=== PATIENT | female | born 1965 | race Caucasian/White ===

== ENCOUNTER 2017-08-30 16:45 | Emergency (ER) | payer MEDICARE ==
[2017-08-30] MEDS ORDERED: MORPHINE SULFATE 10 MG/ML VIAL IVP ONE (16:51)
[2017-08-30] MEDS ORDERED: KETOROLAC 30 MG/ML VIAL IVP ONE (16:51)
[2017-08-30] MEDS ORDERED: 0.9 % SODIUM CHLORIDE 1,000 ML BAG IV ONE (16:51)
[2017-08-30] MEDS ORDERED: ONDANSETRON HCL IV 4 MG/2 ML VIAL IVP ONE (16:51)
--- NOTE | 2017-08-30 16:57 | Emergency Department Record ---
History of Present Illness - General Chief complaint: Flank Pain Stated complaint: RT FLANK PAIN Time Seen by Provider: 08/30/17 16:50 Source: Patient Mode of Arrival: Ambulatory Limitations: No limitations - History of Present Illness Initial comments: 52 yo female presents with right sided flank pain that is sharp and radiates around to the lower abdomen. She states the pain started about 2 hours ago. She has some nausea. No vomiting. No changes in the bowels or urination. She has had renal stones in the past. She states this feels similar. No history of abdominal surgery. No other recent illness. No rash. No cough, shortness of breath or chest pain. MD Complaint: Other (Right flank pain) -: Hour(s) (2) Radiation: R flank Severity: Severe Quality: Aching, Stabbing Consistency: Constant Improves with: None Worsens with: None Patient : No Associated Symptoms: Nausea/vomiting - Related Data Home Medications Medication Instructions Recorded Confirmed Last Taken Meloxicam [Mobic] 15 mg PO QHS 08/30/17 08/30/17 08/29/17 Tramadol HCl [Ultram] 50 mg PO Q8H 08/30/17 08/30/17 08/30/17 Previous Rx's Medication Instructions Recorded Hydrocodone/APAP 5/325Mg [Morrison 1 each PO Q6H #15 tab 08/30/17 5Mg/325Mg] Naproxen [Naprosyn] 500 mg PO Q12H #20 tab 08/30/17 Tamsulosin HCl [Flomax] 0.4 mg PO DAILY #10 cap.er.24h 08/30/17 Allergies Allergy/AdvReac Type Severity Reaction Status Date / Time No Known Drug Allergies Allergy Verified 08/30/17 16:59 Review of Systems Constitutional: Denies: Chills, Fever, Malaise, Weakness Eyes: Denies: Eye discharge ENT: Denies: Congestion, Throat pain Respiratory: Denies: Cough, Dyspnea, Hemoptysis, Stridor, Wheezes Cardiovascular: Denies: Chest pain, Palpitations, Syncope Endocrine: Denies: Fatigue, Polydipsia, Polyuria Gastrointestinal: Reports: As per HPI, Abdominal pain, Nausea. Denies: Constipation, Diarrhea, Hematemesis, Hematochezia, Melena, Vomiting Genitourinary: Denies: Dysuria, Frequency, Urgency Musculoskeletal: Reports: As per HPI, Back pain. Denies: Arthralgia Skin: Denies: Bruising, Change in color, Rash Neurological: Denies: Headache, Numbness, Weakness Psychiatric: Denies: Anxiety Hematological/Lymphatic: Denies: Blood Clots, Easy bleeding, Easy bruising Past Medical History - SOCIAL HISTORY Smoking Status: Former smoker - RESPIRATORY Hx Respiratory Disorders: No - CARDIOVASCULAR Hx Cardio Disorders: Yes Hx Hypertension: Yes - NEURO Hx Neuropathy: Yes (Extremities) - GI Hx GI Disorders: No - Hx Genitourinary Disorders: No - ENDOCRINE Hx Endocrine Disorders: Yes Hx Thyroid Disease: Yes (Hypo) - MUSCULOSKELETAL Hx Musculoskeletal Disorders: Yes Hx Arthritis: Yes (Anti-inflamitory) Hx Back Injury: Yes - PSYCH Hx Psych Problems: Yes Hx Anxiety: Yes Hx Depression: Yes - HEMATOLOGY/ONCOLOGY Hx Hematology/Oncology Disorders: No Family Medical History Hx Cancer: Brother/Sister Physical Exam - General General Appearance: Alert, Oriented x3, Cooperative, No acute distress Limitations: No limitations - Head Head exam: Normal inspection - Eye Eye exam: Normal appearance, PERRL. negative: Conjunctival injection, Scleral icterus - ENT ENT exam: Normal exam, Mucous membranes moist Ear exam: Normal external inspection Nasal Exam: Normal inspection Mouth exam: Normal external inspection - Neck Neck exam: Normal inspection, Full ROM. negative: Tenderness - Respiratory Respiratory exam: Normal lung sounds bilaterally. negative: Respiratory distress, Rhonchi, Stridor, Wheezes - Cardiovascular Cardiovascular Exam: Regular rate, Normal rhythm, Normal heart sounds - GI/Abdominal GI/Abdominal exam: Soft. negative: Distended, Guarding, Rebound, Rigid, Tenderness - Rectal Rectal exam: Deferred - exam: Deferred - Extremities Extremities exam: Normal inspection, Full ROM, Normal capillary refill. negative: Tenderness - Back Back exam: Reports: CVA tenderness (R), Full ROM. Denies: CVA tenderness (L), Vertebral tenderness - Neurological Neurological exam: Alert, Oriented X3 - Psychiatric Psychiatric exam: Normal affect, Normal mood - Skin Skin exam: Dry, Intact, Normal color, Warm Course - Reevaluation(s) Reevaluation #1: 08/30/17 17:19 The CBC was reviewed. No acute changes. 08/30/17 17:53 The CMP was reviewed. No acute changes The CT was reviewed. The patient has a 6.6 mm right distal UVJ stone with HN. She has well controlled pain. I will refer her to urology. We discussed recheck and close follow up She was given a strainer and instruction for home and reasons for a recheck. Medical Decision Making - Lab Data Result diagrams: 08/30/17 16:45 08/30/17 16:45 Disposition Disposition: Discharge Clinical Impression: Renal stones Disposition: Home, Self-Care Condition: (1) Good Instructions: Kidney Stones (ED) Additional Instructions: Return or be seen if the pain is not controlled Return or be seen sooner if fever Use the strainer when you urinate to see if you catch the stone. Prescriptions: Hydrocodone/APAP 5/325Mg [Morrison 5Mg/325Mg] 1 each PO Q6H #15 tab Naproxen [Naprosyn] 500 mg PO Q12H #20 tab. Tamsulosin HCl [Flomax] 0.4 mg PO DAILY #10 cap.er.24h Referrals: CHLOÉ WARREN M.D. [MEDICAL DOCTOR] - [facility] [Provider Group] Forms: Patient Portal Access Quality - Quality Measures Quality Measures: N/A - Blood Pressure Screening Does Patient Have Any of the Following: No Blood Pressure Classification: Hypertensive Reading Systolic Measurement: 151 Diastolic Measurement: 96 Screening for High Blood Pressure: < Pre-Hypertensive BP, F/U Documented > [ [id number]] Pre-Hypertensive Follow-up Interventions: Referral to alternative/primary care provider.
[2017-08-30] MEDS ORDERED: MORPHINE SULFATE 4MG/ML PREFILLED SYRINGE IVP ONE (17:01)
[2017-08-30 17:08] LABS: BASO % 0.5 % (0-6); GRAN % 40.5 % (47-80); HEMATOCRIT 41.1 % (35.0-47.0); HEMOGLOBIN 13.9 gm/dl (11.6-16.0); MEAN CELL VOLUME 87.3 fl (81-97); MEAN CORPUSCULAR HEMOGLOBIN 29.5 pg (27-33); MEAN CORPUSCULAR HGB CONC 33.8 g/dl (32-36); MEAN PLATELET VOLUME 10.3 fl (7.4-10.4); PLATELET COUNT 311 K/uL (130-400); RED BLOOD COUNT 4.71 M/uL (3.80-5.40); RED CELL DISTRIBUTION WIDTH 13.2 % (11.5-14.5); WHITE BLOOD COUNT W/O DIFF 10.9 K/uL (4.2-12.2)
[2017-08-30 17:09] LABS: URINE APPEARANCE CLEAR; URINE BILIRUBIN NEGATIVE (NEGATIVE); URINE BLOOD LARGE (NEGATIVE); URINE COLOR YELLOW; URINE GLUCOSE (UA) NEGATIVE (NEGATIVE); URINE KETONE TRACE (NEGATIVE); URINE LEUKOCYTE ESTERASE TRACE (NEGATIVE); URINE NITRITE NEGATIVE (NEGATIVE); URINE UROBILINOGEN 0.2 E.U./dL (0.20 - 1.00)
[2017-08-30 17:19] LABS: URINE BACTERIA FEW; URINE RBC 21 - 35 (NONE SEEN); URINE SQUAMOUS EPITHELIAL CELL 0 - 2 /hpf; URINE WBC 0 - 2 (0-2/hpf)
[2017-08-30 17:23] LABS: BLOOD UREA NITROGEN 27 mg/dL (6-20); CREATININE 0.7 mg/dL (0.5-0.9); EST GLOMERULAR FILTRATION RATE > 60 mL/min
[2017-08-30 17:24] LABS: TOTAL PROTEIN 7.2 g/dL (6.6-8.7)
[2017-08-30 17:26] LABS: GLUCOSE,RANDOM 88 mg/dL (74-109)
[2017-08-30 17:29] LABS: ALB/GLOB RATIO 1.8 (1.1-1.8); ALBUMIN 4.6 g/dL (4.0-5.0); ALKALINE PHOSPHATASE 92 U/L (35-104); ALT/SGPT 14 U/L (<33); AST/SGOT 21 U/L (10.0-35.0)
[2017-08-30] MEDS ORDERED: TAMSULOSIN HCL 0.4 MG CAP.ER.24H PO ONE (17:53)
--- NOTE | 2017-08-31 23:28 | CT SCAN REPORT ---
EXAM: CT SCAN ABDOMEN/PELVIS WO CONTRAST HISTORY: RIGHT FLANK PAIN. TECHNIQUE: CT abdomen and pelvis without contrast. Lack of IV contrast limits evaluation of solid visceral organs. Lack of oral contrast limits evaluation of bowel. COMPARISON: None. FINDINGS: Limited evaluation of the lung bases is unremarkable. Osseous structures are grossly intact. Limited evaluation of the liver, spleen, adrenal glands, pancreas, and left kidney are unremarkable. There is a punctate nonobstructing 2 mm left renal calculus. The gallbladder is present. Moderate atheromatous change. At least moderate right-sided hydronephrosis and hydroureter. There is an edematous appearance to the right kidney. Findings are secondary to a 6.6 mm right UVJ calculus. The urinary bladder is incompletely distended, limiting its evaluation. Tubal ligation clips are noted. No gross evidence for bowel obstruction. Normal appendix. No free air or free fluid. IMPRESSION: 1. AT LEAST MODERATE RIGHT-SIDED HYDRONEPHROSIS AND HYDROURETER WITH AN EDEMATOUS APPEARANCE TO THE RIGHT KIDNEY SECONDARY TO A 6.6 MM RIGHT UVJ CALCULUS. 2. PUNCTATE NONOBSTRUCTING 2 MM LEFT RENAL CALCULUS. JOB NUMBER: [id number] [facility]
== END 2017-08-30 18:21 | disposition home or self-care (01) ==
LOC: ER 16:45
DX: N13.2 Hydronephrosis with renal and ureteral calculous obstruction (principal); R11.2 Nausea with vomiting, unspecified; I10 Essential (primary) hypertension; Z87.891 Personal history of nicotine dependence
CPT/HCPCS: 99284 ×2; 96374; 96375; 96361; 85025; 80053; 81001; 74176; J1885; J2405; J2274; J7030

== ENCOUNTER 2019-02-23 10:51 | Observation (INO) | payer MEDICARE ==
[2019-02-23] MEDS ORDERED: ONDANSETRON HCL IV 4 MG/2 ML VIAL IVP ONE ×2 (11:14→14:39)
[2019-02-23] MEDS ORDERED: 0.9 % SODIUM CHLORIDE 1000ML 1,000 ML IV ONE (11:14)
[2019-02-23] MEDS ORDERED: CLINDAMYCIN 600MG/50ML PREMIX 600 MG/50 ML BAG IVPB ONE (11:14)
[2019-02-23] MEDS ORDERED: ACETAMINOPHEN 1,000 MG/100 ML BTL IVPB ONE (11:14)
--- NOTE | 2019-02-23 11:19 | Emergency Department Record ---
History of Present Illness - General Chief complaint: Neck Injury/Pain Stated complaint: VOMITING/ NECK PAIN Time Seen by Provider: 02/23/19 11:05 Source: Patient, Family Mode of Arrival: Ambulatory Limitations: No limitations - History of Present Illness Initial comments: 54 yo female presents with nausea and vomiting over the last day. She denies and fever. She has had a small area on the right leg of infection with some drainage. She saw the nurse of her PCP on Sunday and was started on Keflex. She has had three doses of Keflex. She has nausea started earlier in the day on Sunday and vomiting in the evening. No diarrhea. No streaking or spreading of the erythema of the right lower leg. She has some neck pain that she states is chronic from her RA but worse with vomiting. No known history of MRSA or prior skin infections. PCP is Sang. complaint: Nausea, Vomiting Onset/Timin -: Days(s) Description of Vomiting: Watery Description of Diarrhea: Water Location: Other Radiation: None Severity scale (1-10): 8 Consistency: Constant Improves with: None Worsens with: Other (Antibiotic) Associated Symptoms: Loss of appetite - Related Data Home Medications Medication Instructions Recorded Confirmed Last Taken Cephalexin [Keflex] 500 mg PO BID 02/23/19 02/23/19 02/22/19 Allergies Allergy/AdvReac Type Severity Reaction Status Date / Time No Known Drug Allergies Allergy Verified 08/30/17 16:59 Travel Screening - Travel/Exposure Within Last 30 Days Have you traveled within the last 30 days?: No - Travel/Exposure Within Last Year Have you traveled outside the [place] in the last year?: No - Additonal Travel Details Have you been exposed to anyone with a communicable illness?: No - Travel Symptoms Symptom Screening: None Review of Systems Constitutional: Reports: Chills, Malaise, Weakness Eyes: Denies: Eye discharge, Eye pain ENT: Denies: Congestion, Throat pain Respiratory: Denies: Cough, Dyspnea Cardiovascular: Denies: Chest pain, Palpitations, Syncope Endocrine: Reports: Fatigue Gastrointestinal: Reports: Nausea, Vomiting. Denies: Abdominal pain, Const ipation, Diarrhea, Hematemesis, Hematochezia, Melena Genitourinary: Denies: Dysuria, Urgency Musculoskeletal: Reports: Neck pain. Denies: Arthralgia, Back pain Skin: Reports: Change in color, Lesions. Denies: Bruising Neurological: Reports: Headache. Denies: Abnormal gait, Confusion, Paresthesias , Seizure, Tingling, Tremors, Vertigo Psychiatric: Denies: Anxiety Hematological/Lymphatic: Denies: Easy bleeding, Easy bruising Past Medical History - SOCIAL HISTORY Smoking Status: Former smoker Alcohol Use: None Drug Use: None - RESPIRATORY Hx Respiratory Disorders: No - CARDIOVASCULAR Hx Cardio Disorders: Yes Hx Hypertension: Yes - NEURO Hx Neuro Disorders: Yes Hx Neuropathy: Yes (Extremities) - GI Hx GI Disorders: No - Hx Genitourinary Disorders: No Hx Kidney Stones: Yes - ENDOCRINE Hx Endocrine Disorders: Yes Hx Thyroid Disease: Yes (Hypo) - MUSCULOSKELETAL Hx Musculoskeletal Disorders: Yes Hx Arthritis: Yes (Anti-inflamitory) Hx Back Injury: Yes - PSYCH Hx Psych Problems: Yes Hx Anxiety: Yes Hx Depression: Yes - HEMATOLOGY/ONCOLOGY Hx Hematology/Oncology Disorders: No Family Medical History Any Significant Family History?: No Hx Cancer: Brother/Sister Physical Exam - General General Appearance: Alert, Oriented x3, Cooperative, No acute distress Limitations: No limitations - Head Head exam: Atraumatic, Normocephalic, Normal inspection - Eye Eye exam: Normal appearance, PERRL, EOMI. negative: Conjunctival injection, Nystagmus, Scleral icterus - ENT ENT exam: Normal exam, Mucous membranes moist, Normal orophraynx Ear exam: Normal external inspection Nasal Exam: Normal inspection Mouth exam: Normal external inspection - Neck Neck exam: Normal inspection, Full ROM. negative: Lymphadenopathy, Meningismus, Tenderness, Thyromegaly - Respiratory Respiratory exam: Normal lung sounds bilaterally. negative: Accessory muscle use, Decreased breath sounds, Respiratory distress, Rhonchi, Stridor, Wheezes - Cardiovascular Cardiovascular Exam: Regular rate, Normal rhythm, Normal heart sounds - GI/Abdominal GI/Abdominal exam: Soft. negative: Distended, Guarding, Tenderness - Rectal Rectal exam: Deferred - exam: Deferred - Extremities Extremities exam: Tenderness. negative: Normal inspection, Calf tenderness, Pedal edema Image of Full Body: 1 - 5cm erythema, central 1cm scab with 2mm opening with slight pus drainage, minimal swelling - Back Back exam: Denies: CVA tenderness (R), CVA tenderness (L) - Neurological Neurological exam: Alert, Oriented X3 - Psychiatric Psychiatric exam: Normal affect, Normal mood. negative: Agitated, Anxious - Skin Skin exam: Dry, Intact, Normal color, Warm Course Vital Signs 02/23/19 10:53 Temperature 97.5 F L Pulse Rate 97 H Respiratory 16 Rate Blood Pressure 194/122 Pulse Ox 100 - Reevaluation(s) Reevaluation #1: 02/23/19 12:35 The labs were reviewed No significant abnormality on the CBC or CMP 02/23/19 12:37 The patient states her nausea and pain are improved. Toradol added. Antibiotic given for the right leg abscess with cellulitis 02/23/19 15:16 The patient continues to have nausea. She is unable to take her oral antibiotic. I recommend OBV for fluids, antiemetics, and antibiotics IV Medical Decision Making - Lab Data Result diagrams: 02/23/19 11:10 02/23/19 11:10 Disposition Disposition: Admit Clinical Impression: Vomiting, Abscess Cellulitis Qualifiers: Site of cellulitis: extremity Site of cellulitis of extremity: lower extremity Laterality: right Qualified Code(s): L03.115 - Cellulitis of right lower limb Disposition: Still a Patient at [facility] Decision to Admit: Admit from ER Decision to Admit Date: 02/23/19 Decision to Admit Time: 15:13 Condition: (2) Stable Forms: Patient Portal Access Time of Disposition: 15:13 Quality - Quality Measures Quality Measures: N/A - Blood Pressure Screening Does Patient Have Any of the Following: Active Dx of HTN Blood Pressure Classification: Hypertensive Reading Systolic Measurement: 194 Diastolic Measurement: 122 Screening for High Blood Pressure: Patient Exclusion, Hx of HTN [G9744]
[2019-02-23 11:44] LABS: ABSOLUTE NEUTROPHIL COUNT 9.33; HEMATOCRIT 47.2 % (35.0-47.0); HEMOGLOBIN 15.9 gm/dl (11.6-16.0); MEAN CELL VOLUME 83.7 fl (81-97); MEAN CORPUSCULAR HGB CONC 33.7 g/dl (32-36); MEAN PLATELET VOLUME 10.2 fl (7.4-10.4); PLATELET COUNT 327 K/uL (130-400); RED BLOOD COUNT 5.64 M/uL (3.80-5.40); RED CELL DISTRIBUTION WIDTH 14.3 % (11.5-14.5)
[2019-02-23 11:46] LABS: MEAN CORPUSCULAR HEMOGLOBIN 28.1 pg (27-33)
[2019-02-23 11:54] LABS: BLOOD UREA NITROGEN 23 mg/dL (6-20); CREATININE 0.5 mg/dL (0.5-0.9); EST GLOMERULAR FILTRATION RATE > 60 mL/min; TOTAL PROTEIN 7.6 g/dL (6.6-8.7)
[2019-02-23 11:56] LABS: GLUCOSE,RANDOM 125 mg/dL (74-109)
[2019-02-23 11:59] LABS: ALB/GLOB RATIO 1.6 (1.1-1.8); ALBUMIN 4.7 g/dL (4.0-5.0); ALKALINE PHOSPHATASE 113 U/L (35-104); ALT/SGPT 15 U/L (<33); AST/SGOT 20 U/L (10.0-35.0); PLATELET ESTIMATE NORMAL (NORMAL)
[2019-02-23] MEDS ORDERED: KETOROLAC 30 MG/ML VIAL IVP ONE (12:37)
[2019-02-23] MEDS ORDERED: ACETAMINOPHEN 1,000 MG/100 ML BTL IVPB SCH (15:47)
[2019-02-23] MEDS ORDERED: ONDANSETRON HCL IV 4 MG/2 ML VIAL IVP PRN (15:47)
[2019-02-23] MEDS ORDERED: KETOROLAC 30 MG/ML VIAL IVP PRN (15:47)
[2019-02-23] MEDS ORDERED: FLU VAC QS 2019-20 (INPT, 6MO+) 60MCG/0.5ML IM ONE (16:16)
[2019-02-23] MEDS: 0.9 % SODIUM CHLORIDE 1000ML 1,000 ML IV ONE ×2 (16:30→23:21)
[2019-02-23] MEDS: ACETAMINOPHEN 1,000 MG/100 ML BTL IVPB SCH ×2 (17:13→23:10)
[2019-02-23] MEDS ORDERED: CLINDAMYCIN 600MG/50ML PREMIX 600 MG/50 ML BAG IVPB SCH (19:00)
[2019-02-23] MEDS: CLINDAMYCIN 600MG/50ML PREMIX 600 MG/50 ML BAG IVPB SCH (21:02)
[2019-02-24] MEDS: CLINDAMYCIN 600MG/50ML PREMIX 600 MG/50 ML BAG IVPB SCH ×3 (05:12→20:32)
[2019-02-24] MEDS: ACETAMINOPHEN 1,000 MG/100 ML BTL IVPB SCH ×4 (06:00→22:47)
[2019-02-24] MEDS: LEVOTHYROXINE SODIUM 25 MCG TABLET PO SCH (06:24)
--- NOTE | 2019-02-24 07:45 | History & Physical ---
History of Present Illness - Date of Service Date of Service for History & Physical: 02/24/19 - History of Present Illness Admitting Diagnosis: right leg cellulitis, abscess, intractible nausea and vomiting History of Present Illness: 54 yo female presents with nausea and vomiting over the last day. She denies and fever. She has had a small area on the right leg of infection with some drainage. She saw the nurse of her PCP on Sunday and was started on Keflex. She has had three doses of Keflex. She has nausea started earlier in the day on Sunday and vomiting in the evening. No diarrhea. No streaking or spreading of the erythema of the right lower leg. She has some neck pain that she states is chronic from her RA but worse with vomiting. No known history of MRSA or prior skin infections. PCP is Sang. PAST MEDICAL/SURGICAL HISTORY Past Surgical History Right knee scope Rizotomy Tuballigation PMH - Respiratory Hx Respiratory Disorders No PMH - Cardiovascular Hx Cardiovascular Disorders Yes Hx Hypertension Yes PMH - Neuro Hx Neurological Disorders Yes Hx Neuropathy Yes: Extremities PMH - GI Hx Gastrointestinal Disorders No PMH - Hx Genitourinary Disorders No Hx Kidney Stones Yes PMH - Endocrine Hx Endocrine Disorders Yes Hx Diabetes No Hx Thyroid Disease Yes: Hypo PMH - Musculoskeletal Hx Musculoskeletal Disorders Yes Hx Arthritis Yes: Anti-inflamitory Hx Back Injury Yes PMH - Psych Hx Psychiatric Problems Yes Hx Anxiety Yes Hx Depression Yes PMH - Hematology/Oncology Hx Hematology/Oncology No Disorders Laboratory Results WBC 11.0 K/uL (4.2-12.2) 02/23/19 11:10 RBC 5.64 M/uL (3.80-5.40) H 02/23/19 11:10 Hgb 15.9 gm/dl (11.6-16.0) 02/23/19 11:10 Hct 47.2 % (35.0-47.0) H 02/23/19 11:10 MCV 83.7 fl (81-97) 02/23/19 11:10 MCH 28.1 pg (27-33) 02/23/19 11:10 MCHC 33.7 g/dl (32-36) 02/23/19 11:10 RDW 14.3 % (11.5-14.5) 02/23/19 11:10 Plt Count 327 K/uL (130-400) 02/23/19 11:10 MPV 10.2 fl (7.4-10.4) 02/23/19 11:10 Neutrophils % 83.0 % (47-80) H 02/23/19 11:10 Eosinophils % Not Reportable 02/23/19 11:10 Basophils % Not Reportable 02/23/19 11:10 Absolute Neutrophils 9.33 02/23/19 11:10 Lymphocytes 14.0 % (16-45) L 02/23/19 11:10 Monocytes 3.0 % (0-9) 02/23/19 11:10 Platelet Estimate Normal (NORMAL) 02/23/19 11:10 RBC Morphology Normal 02/23/19 11:10 Sodium 138 mmol/L (136-145) 02/23/19 11:10 Potassium 3.7 mmol/L (3.4-4.5) 02/23/19 11:10 Chloride 99 mmol/L (98-107) 02/23/19 11:10 Carbon Dioxide 24.0 mmol/L (22-29) 02/23/19 11:10 Anion Gap 15.0 (7-16) 02/23/19 11:10 BUN 23 mg/dL (6-20) H 02/23/19 11:10 Creatinine 0.5 mg/dL (0.5-0.9) 02/23/19 11:10 Estimated GFR > 60 mL/min 02/23/19 11:10 Random Glucose 125 mg/dL (74-109) H 02/23/19 11:10 Calcium 9.9 mg/dL (8.6-10.0) 02/23/19 11:10 Total Bilirubin 0.50 mg/dL (0.2-1.0) 02/23/19 11:10 AST 20 U/L (10.0-35.0) 02/23/19 11:10 ALT 15 U/L (<33) 02/23/19 11:10 Alkaline Phosphatase 113 U/L (35-104) H 02/23/19 11:10 Total Protein 7.6 g/dL (6.6-8.7) 02/23/19 11:10 Albumin 4.7 g/dL (4.0-5.0) 02/23/19 11:10 Globulin 2.9 gm/dL (1.4-4.8) 02/23/19 11:10 Albumin/Globulin Ratio 1.6 (1.1-1.8) 02/23/19 11:10 Vital Signs - Last 24 Hrs Temp Pulse Pulse Resp BP BP Pulse Ox 02/24/19 07:45 98.7 F 77 20 172/90 99 02/23/19 23:50 98.1 F 87 16 139/78 97 02/23/19 17:28 68 12 165/70 02/23/19 15:50 78 16 161/105 99 02/23/19 15:47 98.2 F 98 H 17 175/107 97 02/23/19 14:45 73 16 185/105 99 02/23/19 13:36 68 16 168/90 99 02/23/19 12:38 82 18 161/101 97 02/23/19 11:51 76 16 172/96 94 L 02/23/19 10:53 97.5 F L 97 H 16 194/122 100 While in ED was found to have RLL cellulitis, WBC normal with left shift. BP 194/122. MRSA PCR collected. Wound culture collected. She was admitted for IV antibiotics. 02/24/19- Resting in bed comfortably, reports significant improvement in nausea and vomiting as well as right leg pain. Did tolerate clear liquid breakfast in small portions today. PCP Travel Screening - Travel/Exposure Within Last 30 Days Have you traveled within the last 30 days?: No - Travel/Exposure Within Last Year Have you traveled outside the [place] in the last year?: No - Additonal Travel Details Have you been exposed to anyone with a communicable illness?: No - Travel Symptoms Symptom Screening: None Review of Systems Constitutional: Reports: Chills, Malaise, Weakness Eyes: Denies: Eye discharge, Eye pain ENT: Denies: Congestion, Throat pain Respiratory: Denies: Cough, Dyspnea Cardiovascular: Denies: Chest pain, Palpitations, Syncope Endocrine: Reports: Fatigue Gastrointestinal: Reports: Nausea, Vomiting. Denies: Abdominal pain, Constipation, Diarrhea, Hematemesis, Hematochezia, Melena Genitourinary: Denies: Dysuria, Urgency Musculoskeletal: Reports: Neck pain. Denies: Arthralgia, Back pain Skin: Reports: Change in color, Lesions. Denies: Bruising Neurological: Reports: Headache. Denies: Abnormal gait, Confusion, Paresthesias, Seizure, Tingling, Tremors, Vertigo Psychiatric: Denies: Anxiety Hematological/Lymphatic: Denies: Easy bleeding, Easy bruising Past Medical History - SOCIAL HISTORY Smoking Status: Former smoker Alcohol Use: None Drug Use: None - RESPIRATORY Hx Respiratory Disorders: No - CARDIOVASCULAR Hx Cardio Disorders: Yes Hx Hypertension: Yes - NEURO Hx Neuro Disorders: Yes Hx Neuropathy: Yes (Extremities) - GI Hx GI Disorders: No - Hx Genitourinary Disorders: No Hx Kidney Stones: Yes - ENDOCRINE Hx Endocrine Disorders: Yes Hx Thyroid Disease: Yes (Hypo) - MUSCULOSKELETAL Hx Musculoskeletal Disorders: Yes Hx Arthritis: Yes (Anti-inflamitory) Hx Back Injury: Yes - PSYCH Hx Psych Problems: Yes Hx Anxiety: Yes Hx Depression: Yes - HEMATOLOGY/ONCOLOGY Hx Hematology/Oncology Disorders: No Family Medical History Any Significant Family History?: Yes Hx Cancer: Brother/Sister Hx Heart Disease: Mother H&P Meds/Allergies - Allergies Allergies: Allergies Allergy/AdvReac Type Severity Reaction Status Date / Time No Known Drug Allergies Allergy Verified 08/30/17 16:59 - Home Medications Home Medications Medication Instructions Recorded Confirmed Last Taken Cephalexin [Keflex] 500 mg PO BID 02/23/19 02/23/19 02/22/19 - Active Medications Active Medications: Current Medications Acetaminophen (Ofirmev) 1,000 mg in 100 mls @ 400 mls/hr IVPB Q6H [facility] Last Infusion: 02/24/19 06:20 Dose: Infused Documented by: Clindamycin Phosphate (Cleocin 600 [id number]) 600 mg in 50 mls @ 100 mls/hr IVPB Q8H [facility] Last Infusion: 02/24/19 05:45 Dose: Infused Documented by: Ketorolac Tromethamine (Toradol) 15 mg IVP Q8H PRN PRN Reason: PAIN - MILD (1-4) Levothyroxine Sodium (Synthroid) 25 mcg PO DAILYTHY [facility] Last Admin: 02/24/19 06:24 Dose: 25 mcg Documented by: Lisinopril (Zestril) 20 mg PO DAILY [facility] Non-Formulary Medication (Sulfasalazine [Sulfasalazine Dr]) 500 mg PO DAILY [facility] Ondansetron HCl (Zofran) 4 mg IVP Q4H PRN PRN Reason: NAUSEA Physical Exam - Vital Signs Vital Signs: Vital Signs - Last 24 Hrs Temp Pulse Pulse Resp BP BP Pulse Ox 02/23/19 23:50 98.1 F 87 16 139/78 97 02/23/19 17:28 68 12 165/70 02/23/19 15:50 78 16 161/105 99 02/23/19 15:47 98.2 F 98 H 17 175/107 97 02/23/19 14:45 73 16 185/105 99 02/23/19 13:36 68 16 168/90 99 02/23/19 12:38 82 18 161/101 97 02/23/19 11:51 76 16 172/96 94 L 02/23/19 10:53 97.5 F L 97 H 16 194/122 100 - General General Appearance: Alert, Oriented x3, Cooperative, No acute distress Limitations: No limitations - Head Head exam: Atraumatic, Normocephalic, Normal inspection - Eye Eye exam: Normal appearance, PERRL, EOMI. negative: Conjunctival injection, Nystagmus, Scleral icterus - ENT ENT exam: Normal exam, Mucous membranes moist, Normal orophraynx Ear exam: Normal external inspection Nasal Exam: Normal inspection Mouth exam: Normal external inspection - Neck Neck exam: Normal inspection, Full ROM. negative: Lymphadenopathy, Meningismus, Tenderness, Thyromegaly - Respiratory Respiratory exam: Normal lung sounds bilaterally. negative: Accessory muscle use, Decreased breath sounds, Respiratory distress, Rhonchi, Stridor, Wheezes - Cardiovascular Cardiovascular Exam: Regular rate, Normal rhythm, Normal heart sounds - GI/Abdominal GI/Abdominal exam: Soft. negative: Distended, Guarding, Tenderness - Rectal Rectal exam: Deferred - exam: Deferred - Extremities Extremities exam: Tenderness. negative: Normal inspection, Calf tenderness, Pedal edema - Back Back exam: Denies: CVA tenderness (R), CVA tenderness (L) - Neurological Neurological exam: Alert, Oriented X3 - Psychiatric Psychiatric exam: Normal affect, Normal mood. negative: Agitated, Anxious - Skin Skin exam: Dry, Intact, Normal color, Warm Type of lesion: Abscess (RLE, approx 3x3 cm, erythema, scabbed, warm and tender) Results - Labs Result Diagrams: 02/23/19 11:10 02/23/19 11:10 Labs Last 24 Hours: Laboratory Results - last 24 hr 02/23/19 02/23/19 11:10 11:10 WBC 11.0 RBC 5.64 H Hgb 15.9 Hct 47.2 H MCV 83.7 MCH 28.1 MCHC 33.7 RDW 14.3 Plt Count 327 MPV 10.2 Neutrophils % 83.0 H Eosinophils % Not Reportable Basophils % Not Reportable Absolute Neutrophils 9.33 Lymphocytes 14.0 L Monocytes 3.0 Platelet Estimate Normal RBC Morphology Normal Sodium 138 Potassium 3.7 Chloride 99 Carbon Dioxide 24.0 Anion Gap 15.0 BUN 23 H Creatinine 0.5 Estimated GFR > 60 Random Glucose 125 H Calcium 9.9 Total Bilirubin 0.50 AST 20 ALT 15 Alkaline Phosphatase 113 H Total Protein 7.6 Albumin 4.7 Globulin 2.9 Albumin/Globulin Ratio 1.6 VTE H&P Assessment - Risk for VTE Risk for VTE: Yes Risk Level: Moderate Risk Assessment Date: 02/24/19 Risk Assessment Time: 09:38 VTE Orders Placed or Will Be Placed: Yes Plan - Detailed Diagnosis and Plan (1) Cellulitis Current Visit: Yes Status: Acute Qualifiers: Site of cellulitis: extremity Site of cellulitis of extremity: lower extremity Laterality: right Qualified Code(s): L03.115 - Cellulitis of right lower limb Base Code: L03.90 - CELLULITIS, UNSPECIFIED Comment: 02/24/19 - No previous hx MRSA or other skin conditions - MRSA PCR and wound culture pending - Clindamycin 600mg Q8hr - IV hydration - Tramadol PRN for pain management (2) HTN (hypertension) Current Visit: Yes Status: Acute Base Code: I10 - ESSENTIAL (PRIMARY) HYPERTENSION Comment: 02/24/19 - Known hx HTN - BP in ED 194/122, now 172/90 - Will monitor, - Continue Lisinopril 20mg (3) Vomiting Current Visit: Yes Status: Acute Base Code: R11.10 - VOMITING, UNSPECIFIED Comment: 02/24/19 - Zofran 4mg Q4hr PRN - Clear liquids until nausea and vomiting have improved (4) Hypothyroid Current Visit: Yes Status: Acute Base Code: E03.9 - HYPOTHYROIDISM, UNSPECIFIED Comment: 02/24/19 - Levothyroxine 25mcg daily (5) DVT prophylaxis Current Visit: Yes Status: Acute Base Code: Z29.9 - ENCOUNTER FOR PROPHYLACTIC MEASURES, UNSPECIFIED Comment: 02/24/19 - Lovenox 40mg QD (6) Full code status Current Visit: Yes Status: Acute Base Code: Z78.9 - OTHER SPECIFIED HEALTH STATUS Comment: 02/24/19
[2019-02-24] MEDS ORDERED: 0.9 % SODIUM CHLORIDE 1000ML 1,000 ML IV PRN (09:32)
[2019-02-24] MEDS ORDERED: SULFASALAZINE 500 MG PO SCH (10:00)
[2019-02-24] MEDS: TRAMADOL HCL 50 MG TABLET PO PRN ×3 (10:53→22:47)
[2019-02-24] MEDS: LISINOPRIL 20 MG TABLET PO SCH (10:53)
[2019-02-24] MEDS: ENOXAPARIN 40 MG/0.4 ML SYR SQ SCH (10:53)
[2019-02-25] MEDS: CLINDAMYCIN 600MG/50ML PREMIX 600 MG/50 ML BAG IVPB SCH ×2 (04:33→12:55)
[2019-02-25] MEDS: ACETAMINOPHEN 1,000 MG/100 ML BTL IVPB SCH ×2 (05:01→11:06)
[2019-02-25] MEDS: LEVOTHYROXINE SODIUM 25 MCG TABLET PO SCH (06:17)
[2019-02-25] MEDS: TRAMADOL HCL 50 MG TABLET PO PRN ×2 (06:46→12:53)
[2019-02-25] MEDS: ENOXAPARIN 40 MG/0.4 ML SYR SQ SCH (09:05)
[2019-02-25] MEDS: LISINOPRIL 20 MG TABLET PO SCH (09:05)
--- NOTE | 2019-02-25 13:20 | Discharge Note ---
VTE H&P Assessment - Risk for VTE Risk for VTE: Yes Risk Level: Moderate Risk Assessment Date: 02/24/19 Risk Assessment Time: 09:38 VTE Orders Placed or Will Be Placed: Yes Discharge Medications - Discharge Medications Prescriptions: Clindamycin HCl 300 mg PO Q8HR #30 capsule Doxycycline Hyclate 100 mg PO BID #20 cap Home Medications: Ambulatory Orders Levothyroxine Sodium [Synthroid] 25 mcg PO DAILY 06/27/14 [Last Taken 02/22/19] Lisinopril 20 mg PO DAILY 06/27/14 [Last Taken 02/22/19] Sulfasalazine [Sulfasalazine Dr] 500 mg PO DAILY 06/27/14 [Last Taken 02/22/19] Meloxicam [Mobic] 15 mg PO QHS 08/30/17 [Last Taken 02/22/19] Tramadol HCl [Ultram] 50 mg PO Q8H 08/30/17 [Last Taken 02/22/19] Clindamycin HCl 300 mg PO Q8HR #30 capsule 02/25/19 [Last Taken Unknown] Doxycycline Hyclate 100 mg PO BID #20 cap 02/25/19 [Last Taken Unknown] Discharge Note - Date Date of Discharge Note: 02/25/19 Disposition: Home, Self-Care Condition: (2) Stable Additional Instructions: Appointment with Dr. Wolf February 28 at 1:00pm. . clindamycin 300 mg Three times a day doxy 100 mg twice a day sensitivity is still pending and she has a staph infection Referrals: SHAI WOLF [Primary Care Provider] - Forms: Patient Portal Access Activity at Discharge: Increase Activity as Tolerated
--- NOTE | 2019-02-26 10:00 | Discharge Summary ---
DATE: 02/25/2019 at 1 p.m. DISCHARGE DIAGNOSES: 1. Cellulitis of the right lower leg. 2. Staph infection of the right lower leg. Sensitivities are pending at this time. 3. Hypertension. 4. Hypothyroidism. 5. Irritable bowel syndrome. ATTENDING PHYSICIAN: Jasper Galicia DO REASON FOR HOSPITALIZATION: This 54-year-old female presented to the emergency department with nausea and vomiting for the last day. She had a small area on right leg with infection and drainage. She saw the nurse practitioner on Sunday and was started on Keflex. She has had 3 doses of Keflex. She has no diarrhea. No streaking or splitting of the erythema of the right lower leg. She has some neck pain that is chronic from her rheumatoid arthritis but worse with vomiting. No known history of MRSA or prior skin infections. She was hospitalized for IV antibiotics and clindamycin. SIGNIFICANT FINDINGS: The redness in the wound was decreasing in redness and improving. She is feeling much better. She is eating and drinking. THERAPY PROVIDED: Clindamycin 600 mg every 8 hours. Continue her home medications and Zofran. HOSPITAL COURSE: Gradually improved. CONDITION ON DISCHARGE: Much improved. DISCHARGE INSTRUCTIONS: Follow up with Dr. Duvall on 02/28/2019 as scheduled. Discharged with doxycycline 100 mg b.i.d. and clindamycin 300 mg t.i.d. for 10 days. When the sensitivities come back, one of the antibiotics could be dropped if they are sensitive to both or if there is some resistance change, it may have to happen. Activity as tolerated. Diet as tolerated. MTDD
== END 2019-02-25 14:00 | disposition home or self-care (01) ==
LOC: ER 10:51 → MEDSURG 15:43
PROVIDERS: ADMIT Internal Medicine; ATTEND Internal Medicine
DX: L03.115 Cellulitis of right lower limb (principal); L02.415 Cutaneous abscess of right lower limb; M54.2 Cervicalgia; E03.9 Hypothyroidism, unspecified; Z87.891 Personal history of nicotine dependence; Z87.442 Personal history of urinary calculi; M06.9 Rheumatoid arthritis, unspecified
CPT/HCPCS: 80053; 85027; 90686; 96365; 96366; 96374; 96375; 96376; 99217; 99220; 99284; 99285; J1650; J1885; J2405; J7030